=== PATIENT | male | born 1955 | race Two or more races ===

== ENCOUNTER 2017-10-15 16:19 | Emergency (ER) | payer OTHER ==
[~2017-10-15] VITALS: Ht 167.6 cm; Wt 79.4 kg
[2017-10-15] MEDS ORDERED: Ketorolac 30mg Inj IM ONE (17:15)
[2017-10-15] MEDS ORDERED: NAPROXEN500 M1 ORAL (17:58)
[2017-10-15] MEDS ORDERED: ROBAXIN-750750 MG PO (17:58)
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
[2017-10-15 18:07] VITALS: BP 156/90
--- NOTE | 2017-10-16 10:23 | Diagnostic Imaging Report ---
Indication: Back pain Comparison: None Findings: 3 views of the lumbar spine were obtained. There is narrowing of intervertebral discs within the lower part of the thoracic spine as well as at L1-2 and L2-3. L2-3 notable for mild retrolisthesis. L5-S1 disc is also narrowed. Endplate spurs are noted throughout the lumbar spine. Aorta is mildly calcified. Lower lumbar facets are sclerotic. IMPRESSION: Degenerative changes as described above
--- NOTE | 2017-10-16 10:25 | Diagnostic Imaging Report ---
Indication: Neck Pain Findings: 3 views of the cervical spine were obtained. Moderate degenerative changes of the cervical spine are demonstrated. This is characterized by vertebral endplate osteophyte formation and narrowing of intervertebral discs. There is no acute fracture identified. Alignment is normal. The open-mouth odontoid view shows an intact dens and good alignment of the lateral masses with respect to the body of C2. There is no soft tissue swelling. The bones are osteopenic. Impression: Moderate degenerative spondylosis.
== END 2017-10-15 18:07 | disposition home or self-care (01) ==
LOC: EMR 17:15
DX: S16.1XXA Strain of muscle, fascia and tendon at neck level, initial encounter (principal); S39.012A Strain of muscle, fascia and tendon of lower back, initial encounter; V43.52XA Car driver injured in collision with other type car in traffic accident, initial encounter; Y92.410 Unspecified street and highway as the place of occurrence of the external cause; E11.9 Type 2 diabetes mellitus without complications; Z88.0 Allergy status to penicillin
CPT/HCPCS: 72020; 72040; 96372; 99284; J1885